=== PATIENT | female | born 1995 | race American Indian/Alaskan Native ===

== ENCOUNTER 2020-04-27 10:48 | Emergency (ER) | payer SELFPAY ==
[2020-04-27 11:15] VITALS: BP 112/54
--- NOTE | 2020-04-27 11:24 | Emergency Department Report ---
Blank Doc - Documentation Documentation: 24-year-old female that presents with abdominal pain with nausea vomiting. St ated has alcohol drinks yesterday. 1- This initial assessment/diagnostic orders/clinical plan/ treatment(s) is/are subject to change based on pt's health status, clinical progression and re-assessment by fellow clinical providers in the ED. Further treatment and workup at subsequent clinical provers discretion. Patient/guardians urged not to elope from ED as their condition may be serious if not clinically assessed and managed. 2-labs 3-UA
[2020-04-27 11:56] LABS: Bacteria,Urine 1+ /HPF (Negative); Bilirubin,Urine NEG (Negative); Blood,Urine NEG (Negative); Color,Urine Yellow (Yellow); Mucus,Urine 2+ /HPF; Urobilinogen,Urine < 2.0 mg/dL (<2.0)
[2020-04-27 11:58] LABS: HCG Qualitative,Urine Negative (Negative)
[2020-04-27 12:06] LABS: Hematocrit 40.8 % (30.3-42.9); Hemoglobin 14.5 gm/dl (10.1-14.3); Mean Corpuscular HGB Conc 36 % (30-34); Mean Corpuscular Volume 95 fl (79-97); Platelet Count 175 K/mm3 (140-440); Red Blood Count 4.31 M/mm3 (3.65-5.03); Red Cell Distribution Width 13.8 % (13.2-15.2)
[2020-04-27 12:25] LABS: Alanine Aminotransferase 14 units/L (7-56); Albumin 5.2 g/dL (3.9-5); Blood Urea Nitrogen 9 mg/dL (7-17); Calcium 9.4 mg/dL (8.4-10.2); Hemolysis Index 4
[2020-04-27 12:38] LABS: BUN/Creatinine Ratio 18
[2020-04-27 14:31] LABS: Platelet Estimate Consistent w Auto; RBC Morphology Normal; Total Cells Counted 100
== END 2020-04-27 13:27 ==
LOC: ED 10:48
DX: R10.9 Unspecified abdominal pain (principal); R11.2 Nausea with vomiting, unspecified; Z53.21 Procedure and treatment not carried out due to patient leaving prior to being seen by health care provider
CPT/HCPCS: 36415; 80053; 80320; 81001; 81025; 83690; 85007; 85025; 87076; 87086; 87186; G0480

== ENCOUNTER 2020-04-27 13:42 | Emergency (ER) | payer SELFPAY ==
[2020-04-27] MEDS ORDERED: SODIUM CHLORIDE 0.9% 1000 ML 1,000 ML IV ONE (14:32)
[2020-04-27] MEDS ORDERED: ONDANSETRON 4 MG/2 ML INJ IV ONE (14:33)
--- NOTE | 2020-04-27 14:38 | Emergency Department Report ---
HPI - General Chief Complaint: Nausea/Vomiting/Diarrhea Time Seen by Provider: 04/27/20 14:14 - HPI HPI: This is a 24-year-old female presents to the emergency department with complaint of nausea and vomiting that has been going on since about 2 AM last night. The patient does drink alcohol regularly, but not every day, and says that she has not ever had this type of reaction to drinking alcohol. She did not drink a larger quantity of alcohol than usual and does not think that it is related to her alcohol. She had some seafood last night and says that maybe it could be food poisoning. She otherwise denies any past medical history. The patient also says that she has been having some issues over the past week or so and when she wakes up in the middle of the night sweaty and with palpitations. No recent travel or sick contacts at home. She does not have a primary care physician. The patient was seen in triage earlier today and then briefly eloped before she checked back into be seen. ED Past Medical Hx - Past Medical History Previous Medical History?: Yes Additional medical history: strept throat, bronchitis - Surgical History Past Surgical History?: No - Social History Smoking Status: Never Smoker Substance Use Type: None - Medications Home Medications: Home Medications Medication Instructions Recorded Confirmed Last Taken Type HYDROcodone/APAP 5-325 [[place] 1 each PO Q6HR PRN #10 tablet 04/05/14 Unknown Rx 5-325 mg TAB] Ibuprofen [Motrin 400 MG tab] 400 mg PO Q8H PRN #30 tablet 04/05/14 Unknown Rx Dextromethorphan/Benzocaine 1 each PO Q4H PRN #30 lozenge 12/29/16 Unknown Rx [Cepacol Sorethroat-Cough [place]] Guaifenesin/Pseudoephedrne HCl 1 each PO BID PRN #30 tab.er.12h 12/29/16 Unknown Rx [Mucinex D ER 600-60 mg Tablet] Ibuprofen [Motrin] 600 mg PO Q8H PRN #30 tablet 12/29/16 Unknown Rx traMADoL [Ultram 50 MG tab] 50 mg PO Q6HR PRN #20 tablet 12/29/16 Unknown Rx Docusate Sodium [Colace] 100 mg PO BID PRN #20 capsule 04/27/20 Unknown Rx Nitrofurantoin [place]aver/M-Cryst 100 mg PO Q12HR #14 capsule 04/27/20 Unknown Rx [Macrobid CAP] Ondansetron [Zofran Odt] 4 mg PO Q8HR PRN #12 tab.rapdis 04/27/20 Unknown Rx ED Review of Systems ROS: Stated complaint: SICK Other details as noted in HPI Comment: All other systems reviewed and negative Constitutional: denies: chills, fever Eyes: denies: eye pain, vision change ENT: denies: ear pain, throat pain Respiratory: denies: cough, shortness of breath Cardiovascular: denies: chest pain, palpitations Gastrointestinal: nausea, vomiting Genitourinary: denies: dysuria, discharge Musculoskeletal: denies: back pain, arthralgia Skin: denies: rash, lesions Neurological: denies: headache, weakness Physical Exam - Physical Exam Vital Signs: Vital Signs 04/27/20 13:57 Temperature 98.4 F Pulse Rate 72 Respiratory 20 Rate Blood Pressure 120/67 [Left] O2 Sat by Pulse 100 Oximetry Physical Exam: GENERAL: The patient is well-developed well-nourished. HENT: Normocephalic. Atraumatic. Patient has moist mucous membranes. EYES: Extraocular motions are intact. NECK: Supple. Trachea is midline. CHEST/LUNGS: Clear to auscultation. There is no respiratory distress noted. HEART/CARDIOVASCULAR: Regular. There is no tachycardia. There is no murmur. ABDOMEN: Abdomen is soft, nontender. Patient has normal bowel sounds. There is no abdominal distention. SKIN: Skin is warm and dry. NEURO: The patient is awake, alert, and oriented. The patient is cooperative. The patient has no focal neurologic deficits. Normal speech. MUSCULOSKELETAL: There is no tenderness or deformity. There is no limitation range of motion. PELVIC: No foreign body seen. There is a small amount of white discharge seen in the vagina. ED Course Vital Signs 04/27/20 13:57 Temperature 98.4 F Pulse Rate 72 Respiratory 20 Rate Blood Pressure 120/67 [Left] O2 Sat by Pulse 100 Oximetry - Reevaluation(s) Reevaluation #1: 04/27/20 18:57 Pelvic examination done with at bedside to services advisor and assist. ED Medical Decision Making - Lab Data Laboratory Results - last 24 hr 04/27/20 14:42 TSH 0.397 - Radiology Data Radiology results: report reviewed ABDOMEN 2 VIEWS INDICATION / CLINICAL INFORMATION: Abd pain. COMPARISON: None available. FINDINGS: TUBES / LINES: None. BOWEL GAS PATTERN: Nonobstructive bowel gas pattern. Abundant fecal material noted in the descending colon and rectal vault. FREE AIR / EXTRALUMINAL GAS: None seen. ADDITIONAL FINDINGS: There is a linear 2.8 cm radiopaque foreign body projected over the sacrum. This could be within the pelvis or external to the patient. CHEST: Visualized chest shows no significant abnormality. IMPRESSION: 1. Abundant fecal material noted within the descending colon and rectal vault. Correlate for signs and symptoms of constipation. 2. 2.8 cm linear radiopaque foreign body projected over the sacrum. This may be within the pelvis or external to the patient. Clinical correlation for foreign body ingestion is recommended. 3. Nonobstructive bowel gas pattern. - Medical Decision Making This patient presents to the emergency department with a complaint of nausea and vomiting that has been going on since about 2 AM. Secondarily, the patient also says that she has been having some issues in which she wakes up in the middle of the night sweaty and with some type of palpitation. On examination the patient does not appear in any acute distress. She had had blood work done earlier in the day before she briefly eloped and then returned. Those labs did not show any significant abnormalities including CBC, metabolic panel, and the patient is not . Urinalysis did show a mild urinary tract infection. An IV was placed and the patient was given some IV fluid resuscitation and a dose of IV antiemetics. Upon reevaluation the patient is feeling greatly improved and has been able to pass an oral challenge. She had abdominal x-ray that showed some increased stool volume. Radiology read that there is a 2.8 cm radiopaque object seen towards the area of the sacrum, but it could also be external to the patient. Patient says that she denies any foreign body inserted into the vagina, rectum, or swallowed. After discussing this with the patient she has requested a pelvic examination. This was done with the nurse at bedside to assist and services advisor. No retained tampon or foreign body seen within the vagina. The patient will be discharged home to follow-up with primary care and [employer]. She has been given a prescription for Macrobid for the UTI, Zofran ODT for the nausea and vomiting. Vital signs have been reassuring throughout her ED course. Critical care attestation.: If time is entered above; I have spent that time in minutes in the direct care of this critically ill patient, excluding procedure time. ED Disposition Clinical Impression: Increased stool volume Nausea & vomiting Qualifiers: Vomiting type: unspecified Vomiting Intractability: non-intractable Qualified Code(s): R11.2 - Nausea with vomiting, unspecified UTI (urinary tract infection) Qualifiers: Urinary tract infection type: acute cystitis Hematuria presence: without hematuria Qualified Code(s): N30.00 - Acute cystitis without hematuria Disposition: TO HOME OR SELFCARE Is pt being admited?: No Condition: Stable Instructions: Nausea and Vomiting, Adult Additional Instructions: Increase your oral rehydration. Please follow-up with a primary care physician in the next few days. Return to the emergency department with any worsening of your symptoms, new or concerning symptoms not addressed during this current emergency department visit, or with any acute distress. Prescriptions: Docusate Sodium [Colace] 100 mg PO BID PRN #20 capsule PRN Reason: Constipation Nitrofurantoin [place]/M-Cryst [Macrobid CAP] 100 mg PO Q12HR #14 capsule Ondansetron [Zofran Odt] 4 mg PO Q8HR PRN #12 tab.rapdis PRN Reason: Nausea Referrals: PRIMARY CARE, [Primary Care Provider] - 3-5 Days ELODIA ZHU MD [Staff Physician] - 3-5 Days [facility] [Provider Group] - 3-5 Days Time of Disposition: 16:02
[2020-04-27] MEDS ORDERED: cefTRIAXone/NS 1 GM/50 ML 1 GM/50 ML BAG IV ONE (15:06)
--- NOTE | 2020-04-27 15:47 | XRay Report ---
ABDOMEN 2 VIEWS INDICATION / CLINICAL INFORMATION: Abd pain. COMPARISON: None available. FINDINGS: TUBES / LINES: None. BOWEL GAS PATTERN: Nonobstructive bowel gas pattern. Abundant fecal material noted in the descending colon and rectal vault. FREE AIR / EXTRALUMINAL GAS: None seen. ADDITIONAL FINDINGS: There is a linear 2.8 cm radiopaque foreign body projected over the sacrum. This could be within the pelvis or external to the patient. CHEST: Visualized chest shows no significant abnormality. IMPRESSION: 1. Abundant fecal material noted within the descending colon and rectal vault. Correlate for signs an d symptoms of constipation. 2. 2.8 cm linear radiopaque foreign body projected over the sacrum. This may be within the pelvis or external to the patient. Clinical correlation for foreign body ingestion is recommended. 3. Nonobstructive bowel gas pattern. Signer Name: Mark Segovia MD Signed: 04/27/2020 3:43 PM Workstation Name: [id number]
[2020-04-27 18:13] VITALS: BP 126/75
== END 2020-04-27 16:14 | disposition home or self-care (01) ==
LOC: ED 13:42
DX: N39.0 Urinary tract infection, site not specified (principal); R11.2 Nausea with vomiting, unspecified; Z79.899 Other long term (current) drug therapy
CPT/HCPCS: 36415; 74019; 84443; 96361; 96365; 96375; 99284; J0696; J2405; J7030